=== PATIENT | female | born 1960 | race Caucasian/White ===

== ENCOUNTER 2020-09-12 10:13 | Inpatient (IN) ==
[2020-09-12 13:00] LABS: Basophils % 0.6 %; Eosinophils # 0.1 K/mcL (0.0-0.6); Eosinophils % 1.4 %; Immature Granulocytes % 0.2 % (0-4); Lymphocytes # 1.9 K/mcL (0.6-4.6); Lymphocytes % 29.3 %; Mean Corpuscular HGB Conc 32.6 g/dL (31.6-35.5); Mean Corpuscular Volume 98.2 fL (83.0-100.0); Mean Platelet Volume 8.6 fL (9.4-12.4); Monocytes # 0.3 K/mcL (0.0-1.3); Neutrophils # 4.2 K/mcL (1.6-8.9); Platelet Count 340 K/mcL (140-400); Red Blood Count 4.38 M/mcL (3.82-4.97); Red Cell Distribution Width 13.7 % (11.5-14.5); Segmented Neutrophils % 63.5 %; White Blood Count 6.6 K/mcL (4.3-11.1)
[2020-09-12 13:18] LABS: BUN/Creatinine Ratio 11 (6-26); Blood Urea Nitrogen 7 mg/dL (8-23); Calcium 9.7 mg/dL (8.6-10.3); Carbon Dioxide 27 mEq/L (23-29); Chloride 105 mEq/L (98-107); Glucose 77 mg/dL (70-105); Osmolality,Calculated 283 (280-300); Potassium 4.2 mEq/L (3.5-5.1); Sodium 138 mEq/L (136-145); eGFR For African Americans > 60 (> 60); eGFR For Non-African Americans > 60 (> 60)
[2020-09-12] MEDS ORDERED: Naloxone 0.4 MG/ML INJ IVP PRN (13:37)
[2020-09-12] MEDS ORDERED: Ondansetron 4 MG/2 ML VIAL IVP PRN (13:37)
[2020-09-12] MEDS: Nicotine 21 MG PATCH.TD24 TD SCH (15:52)
[2020-09-12] MEDS: *HR* Heparin 5,000 UNIT/ML VIAL SQ SCH (20:50)
[2020-09-13 01:26] LABS: Bilirubin,Urine Negative (Negative); Blood,Urine Negative (Negative); Clarity,Urine Clear (Clear); Color,Urine Light-Yellow (Yellow); Glucose,Urine (UA) Normal (Normal); Ketones,Urine Negative (Negative); Leukocyte Esterase,Urine Trace (Negative); Mucus,Urine Few per lpf (None-Few); Nitrite,Urine Positive (Negative); Protein,Urine Negative (Neg-Trace); RBC,Urine 0-3 per hpf (0-3); Specific Gravity,Urine 1.015 (1.010-1.025); Urobilinogen,Urine Normal (Normal); WBC,Urine 0-3 per hpf (0-3)
[2020-09-13 02:56] LABS: Basophils # 0.1 K/mcL (0.0-0.2); Basophils % 0.6 %; Eosinophils # 0.2 K/mcL (0.0-0.6); Eosinophils % 2.3 %; Hematocrit 43.1 % (35.3-44.9); Hemoglobin 14.7 g/dL (11.5-15.4); Immature Granulocytes % 0.3 % (0-4); Lymphocytes % 38.4 %; Mean Corpuscular HGB Conc 34.1 g/dL (31.6-35.5); Mean Corpuscular Volume 96.6 fL (83.0-100.0); Mean Platelet Volume 8.7 fL (9.4-12.4); Monocytes # 0.6 K/mcL (0.0-1.3); Monocytes % 7.8 %; Platelet Count 319 K/mcL (140-400); Red Blood Count 4.46 M/mcL (3.82-4.97); Red Cell Distribution Width 13.6 % (11.5-14.5); Segmented Neutrophils % 50.6 %; White Blood Count 7.9 K/mcL (4.3-11.1)
[2020-09-13 03:02] LABS: INR 0.9; Prothrombin Time 10.9 Seconds (9.4-12.1)
[2020-09-13 03:16] LABS: BUN/Creatinine Ratio 21 (6-26); Blood Urea Nitrogen 15 mg/dL (8-23); Calcium 9.3 mg/dL (8.6-10.3); Carbon Dioxide 24 mEq/L (23-29); Chloride 104 mEq/L (98-107); Glucose 99 mg/dL (70-105); Osmolality,Calculated 283 (280-300); Potassium 3.7 mEq/L (3.5-5.1); Sodium 136 mEq/L (136-145); eGFR For African Americans > 60 (> 60); eGFR For Non-African Americans > 60 (> 60)
[2020-09-13] MEDS: *HR* Heparin 5,000 UNIT/ML VIAL SQ SCH ×2 (05:29→18:11)
[2020-09-13] MEDS: Nicotine 21 MG PATCH.TD24 TD SCH (15:14)
[2020-09-14] MEDS: *HR* Heparin 5,000 UNIT/ML VIAL SQ SCH (04:31)
[2020-09-14] MEDS ORDERED: Venlafaxine XR (24 HR) 75 MG CAP.ER.24H PO SCH (09:00)
[2020-09-14] MEDS ORDERED: Dexmedetomidine HCl 400 MCG/100 ML MLS IVC ONE (11:51)
[2020-09-14] MEDS ORDERED: Lidocaine -MPF 4% 5 ML AMPUL ONE (11:54)
[2020-09-14] MEDS ORDERED: Lidocaine -MPF 2% 2 ML VIAL ONE (11:54)
[2020-09-14] MEDS ORDERED: *HR* FentaNYL (PF) 100 MCG/2 ML VIAL ONE (11:54)
[2020-09-14] MEDS ORDERED: *HR* Midazolam HCl 2 MG/2 ML VIAL ONE (11:54)
[2020-09-14] MEDS ORDERED: *HR* Propofol 200 MG/20 ML VIAL IVP ONE (11:54)
[2020-09-14] MEDS ORDERED: *HR* Succinylcholine 200 MG/10 ML VIAL IVP ONE (11:54)
[2020-09-14] MEDS ORDERED: Ondansetron 4 MG/2 ML VIAL ONE ×2 (11:54→17:07)
[2020-09-14] MEDS ORDERED: Polymyxin B Sulfate 500,000 UNIT, Sodium Chloride IRRigation 1,000 ML IR ONE (12:30)
[2020-09-14] MEDS ORDERED: *HR* Remifentanil 1 MG VIAL IVP ONE ×2 (12:51→16:49)
[2020-09-14] MEDS ORDERED: *HR* Phenylephrine 10 MG/ML VIAL ONE (14:11)
[2020-09-14] MEDS ORDERED: *HR* Metoprolol 5 MG/5 ML VIAL IVP ONE (17:31)
[2020-09-14] MEDS ORDERED: Promethazine 6.25 MG in Water for inj. (sterile) 20 ML IVPB PRN (17:41)
[2020-09-14] MEDS ORDERED: Acetaminophen IV 1,000 MG/100 ML BAG IVPB ONE (17:41)
[2020-09-14] MEDS ORDERED: *HR* HYDROmorphone 2 MG TABLET PO PRN (17:41)
[2020-09-14] MEDS ORDERED: *HR* OxyCODONE Immed Rel 5 MG TABLET PO PRN (17:41)
[2020-09-14] MEDS: *HR* HYDROmorphone 2 MG/ML SYRINGE IVP PRN ×2 (17:45→17:57)
[2020-09-14] MEDS ORDERED: *HR* Labetalol 20 MG/4 ML SYRINGE IVP ONE (18:03)
[2020-09-14] MEDS: *HR* Labetalol 20 MG/4 ML SYRINGE IVP PRN ×2 (18:05→18:16)
[2020-09-14] MEDS: *HR* HYDROmorphone (PF) 1 MG/ML SYRINGE IVP PRN ×2 (18:26→18:36)
[2020-09-14] MEDS ORDERED: Ondansetron 4 MG/2 ML VIAL IVP PRN (19:13)
[2020-09-14] MEDS ORDERED: Acetaminophen 325 MG TABLET PO PRN (19:13)
[2020-09-14] MEDS ORDERED: Naloxone 0.4 MG/ML INJ IVP PRN (19:13)
[2020-09-14] MEDS: Nicotine 21 MG PATCH.TD24 TD SCH (19:43)
[2020-09-14] MEDS: Ringers Solution, Lactated 1,000 ML IVC SCH ×2 (20:05→23:50)
[2020-09-14] MEDS: *HR* OxyCODONE Immed Rel 5 MG TABLET PO PRN (20:53)
[2020-09-14] MEDS: *HR* HYDROcodone/Acet 5/325 mg TABLET PO PRN (23:50)
[2020-09-14] MEDS: CeFAZolin 2 GM/120 ML BAG IVPB SCH (23:50)
[2020-09-15] MEDS: *HR* OxyCODONE Immed Rel 5 MG TABLET PO PRN ×4 (02:01→20:03)
[2020-09-15] MEDS: *HR* HYDROcodone/Acet 5/325 mg TABLET PO PRN (08:01)
[2020-09-15] MEDS: CeFAZolin 2 GM/120 ML BAG IVPB SCH (08:04)
[2020-09-15] MEDS ORDERED: Acetaminophen/Butalbital/CaffeineTABLET PO ONE (14:45)
[2020-09-15] MEDS: Ringers Solution, Lactated 1,000 ML IVC SCH (16:18)
[2020-09-16] MEDS: *HR* OxyCODONE Immed Rel 5 MG TABLET PO PRN ×2 (00:17→07:49)
[2020-09-16 06:49] VITALS: BP 156/84; PULSE 81; TEMP 97.6; O2SAT 98
[2020-09-18] MEDS ORDERED: Ergocalciferol (VIT D2) 50,000 UNIT (1.25MG) CAP PO SCH (09:00)
== END 2020-09-16 11:20 | disposition home health service (06) | DRG 321 ==
LOC: EMEROOARM 10:13 → 3NENU 10:13 → SUATTDRO 13:48
PROVIDERS: ADMIT Internal Medicine; ATTEND Internal Medicine